=== PATIENT | female | born 2000 | race Caucasian/White ===

== ENCOUNTER 2020-08-21 10:26 | Emergency (ER) | payer OTHER, SELFPAY ==
[2020-08-21 10:35] VITALS: BP 144/73; PULSE 72; RESP 16; TEMP 36.6; O2SAT 99
[2020-08-21 10:55] VITALS: BP 116/72; PULSE 77; RESP 18; O2SAT 99
[2020-08-21 11:06] LABS: Basophils Percent Auto 0.3 % (0.2-1.2); Eosinophils Absolute Auto 0.1 K/mm3 (0-0.3); Eosinophils Percent Auto 1.6 % (0-4.4); Hematocrit 40.9 % (37.0-47.0); Hemoglobin 13.2 g/dL (12.0-15.0); Immature Granulocyte Absolute 0.01 K/mm3 (0.00-0.031); Immature Granulocyte Percent A 0.1 % (0-0.5); Lymphocytes Absolute Auto 1.97 K/mm3 (0.9-3.2); Lymphocytes Percent Auto 25.6 % (18.3-44.2); Mean Corpuscular HGB Conc 32.3 g/dl (32-36); Mean Corpuscular Hemoglobin 29.9 pg (26-34); Mean Corpuscular Volume 92.5 fl (80-100); Mean Platelet Volume 10.4 fl (7.4-10.4); Monocytes Absolute Auto 0.5 K/mm3 (0.1-0.6); Neutrophils Percent Auto 65.4 % (45.5-73.1); Platelet Count Result 243 k/mm3 (150-375); Red Blood Count 4.42 M/mm3 (4.2-5.4); Red Cell Distribution Width 12.3 % (11.5-14.5); White Blood Count 7.7 K/mm3 (4.5-10.0)
[2020-08-21 11:21] LABS: Anion Gap 6 mmol/L (8-16); Blood Urea Nitrogen 13 mg/dL (7-17); Calcium 9.1 mg/dL (8.4-10.2); Carbon Dioxide 28 mmol/L (22-30); Chloride 105 mmol/L (98-107); Estimated CRCL calculation 86 ml/min; Estimated Glomerular Filt Rate > 60; Glucose 92 mg/dL (65-105); Potassium 4.2 mmol/L (3.4-5.0); Sodium 139 mmol/L (137-145)
--- NOTE | 2020-08-21 12:13 | ED.HA ---
HPI - Headache General Chief Complaint: Headache Stated Complaint: headache Time Seen by Provider: 08/21/20 10:35 History of Present Illness HPI Narrative: Patient is a 20-year-old female who presents to the ER with concerns of abnormal thyroid function. Patient reports has been having a tension headache for the last 6 months it has been intermittent. Occasionally is in the back of her head or in her shoulder/neck. No fevers or chills or sweats/nausea/vomiting. Patient had a hair appointment and noticed a chunk of hair came out from the top of her head. No previous history of alopecia. No itching to the scalp or rash. No previous history of alopecia. No new medications. Related Data Home Medications Medication Instructions Recorded Confirmed No Home Medications 08/21/20 08/21/20 Allergies Allergy/AdvReac Type Severity Reaction Status Date / Time No Known Allergies Allergy Verified 08/21/20 10:41 Review of Systems Review of Systems: All systems reviewed & are unremarkable except as noted in HPI and below Constitutional: Constitutional: Denies chills, Denies fever(s) and Denies weakness ENT: Denies nasal congestion and Denies sore throat Cardiovascular: Cardiovascular: Denies chest pain, Denies rapid heart rate and Denies radiating jaw, neck or arm pain Respiratory: Respiratory: Denies cough, Denies dyspnea and Denies wheezing Gastrointestinal: Gastrointestinal: Denies abdominal pain, Denies nausea and Denies vomiting Integumentary/Breasts: Skin/Breast: Denies pruritus, Denies erythema and Denies rash Comments: Hair loss Neurologic: Reports headache(s), Denies focal weakness and Denies numbness Endocrine: Endocrine: Denies fatigue Comments: No cold intolerance or constipation PMFSH Past Medical History Medical History (Updated 08/21/20 @ 12:30 by Stevie Woody MD) Healthy female adult Ovarian cyst Surgical History Surgical History (Updated 08/21/20 @ 12:15 by Stevie Woody MD) H/O laparoscopy Social History Social History (Updated 08/21/20 @ 12:16 by Stevie Woody MD) Smoking status: Never smoker Exam Narrative: Exam Narrative: GENERAL: Well-appearing, well-nourished, and in no acute distress. HEAD: Normocephalic, atraumatic. Small area to the crown of the head where patient is missing some hair. Approximately 1 cm in diameter. No broken hair follicles or evidence of infection. NECK: Supple. Full range of motion is painless. No thyromegaly CHEST: Clear to auscultation. No respiratory distress. HEART: Regular rate and rhythm. Normal peripheral pulses. ABDOMEN: Soft, nontender, nondistended EXTREMITIES: Normal range of motion. No edema. NEURO: Alert and oriented x3. PSYCH: Normal mood and affect. Course Course Emergency Course: Unexplained alopecia. No ringworm or evidence of infection to the scalp. Recommend patient follow-up with PCP. Vital Signs Vital signs: Vital Signs Temperature 97.9 F 08/21/20 10:35 Pulse Rate 72 08/21/20 10:35 Respiratory Rate 16 08/21/20 10:35 Blood Pressure 144/73 H 08/21/20 10:35 Pulse Oximetry 99 08/21/20 10:35 Temperature 97.9 F 08/21/20 10:35 Pulse Rate 77 08/21/20 10:55 Respiratory Rate 18 08/21/20 10:55 Blood Pressure 116/72 08/21/20 10:55 Pulse Oximetry 99 08/21/20 10:55 MDM - Headache Lab Data Result diagrams: 08/21/20 10:55 08/21/20 10:56 Labs: Lab Results 08/21/20 08/21/20 08/21/20 Range/Units 10:55 10:56 10:56 WBC 7.7 (4.5-10.0) K/mm3 RBC 4.42 (4.2-5.4) M/mm3 Hgb 13.2 (12.0-15.0) g/dL Hct 40.9 (37.0-47.0) % MCV 92.5 (80-100) fl MCH 29.9 (26-34) pg MCHC 32.3 (32-36) g/dl RDW 12.3 (11.5-14.5) % Plt Count 243 (150-375) k/mm3 MPV 10.4 (7.4-10.4) fl Immature Gran % (Auto) 0.1 (0-0.5) % Neut % (Auto) 65.4 (45.5-73.1) % Lymph % (Auto) 25.6 (18.3-44.2) % [place] % (Auto) 7.0
[2020-08-21 12:40] VITALS: BP 132/78; PULSE 78; RESP 18; O2SAT 99
== END 2020-08-21 12:42 | disposition home or self-care (01) ==
PROVIDERS: Emergency Provider Emergency Medicine
DX: G44.209 Tension-type headache, unspecified, not intractable (principal); L65.9 Nonscarring hair loss, unspecified
CPT/HCPCS: 36415; 80048; 84443; 85025; 99283

== ENCOUNTER 2020-09-10 07:32 | Outpatient (CLI) | payer OTHER, SELFPAY ==
[2020-09-10 12:24] LABS: Cholesterol 197 mg/dL (0-200); HDL Direct 62 mg/dL; Triglycerides 104 mg/dL (<150)
[2020-09-10 12:35] LABS: LDL Cholesterol Direct 108 mg/dL
[2020-09-10 12:39] LABS: Vitamin D 25 Hydroxy 28.9 ng/mL
== END 2020-09-10 07:33 | disposition home or self-care (01) ==
LOC: ANHWCLAB 07:37
PROVIDERS: PCP Nurse Practitioner; Visit Provider Nurse Practitioner
DX: Z00.00 Encounter for general adult medical examination without abnormal findings (principal); Z13.220 Encounter for screening for lipoid disorders; E55.9 Vitamin D deficiency, unspecified
CPT/HCPCS: 36415; 80061; 82306

== ENCOUNTER 2020-11-19 10:49 | Emergency (ER) | payer OTHER, SELFPAY ==
--- NOTE | ~2020-11-19 | US_ITS ---
US pelvic complete w TV DATE: 11/19/2020 18:08 INDICATION: Right abdominal and pelvic pain TECHNIQUE: High-resolution transabdominal and transvaginal ultrasound examination Doppler evaluation COMPARISON: 11/19/2020 CT abdomen pelvis FINDINGS: The uterus measures 7.7 cm height, 3.2 cm anteroposterior and 5.1 cm transverse dimension. Central endometrial echo complex measures up to 7 mm AP dimension. Up to 4.8 cm right ovarian cyst. Interval collapse of approximately 15 cm left ovarian cyst since 11/[address] abdomen pelvis examinat ion at 1651 hours Vascular flow is confirmed to both ovaries. Mild free fluid is noted in the cul-de-sac. IMPRESSION: Ruptured left ovarian cyst since earlier CT abdomen pelvis examination today Mild free fluid in the cul-de-sac 4.8 cm right ovarian cyst Reviewed, dictated and finalized at [facility]. Reviewed, dictated and finalized at [facility] IMPRESSION: Ruptured left ovarian cyst since earlier CT abdomen pelvis examinat ion today Mild free fluid in the cul-de-sac 4.8 cm right ovarian cyst
--- NOTE | ~2020-11-19 | CT_ITS ---
EXAMINATION: CT abdomen pelvis w con DATE: 11/19/2020 17:07 INDICATION: Right lower quadrant abdominal pain with nausea, vomiting and fever. TECHNIQUE: Computed tomography (CT) of the abdomen and pelvis was performed with 100 mL Omnipaque-350 intravenous contrast. Automated exposure control and iterative reconstruction technique were employe d. The dose-length product was 324.41 mGy-cm. COMPARISON: 08/03/2018 FINDINGS: Lung bases are clear. Heart size is normal. No pericardial or pleural effusion. Liver, gallbladder, s pleen, pancreas, bilateral adrenal glands and kidneys are normal. Liquid stool throughout the colon c onsistent with diarrhea. No abnormal bowel wall thickening or obstruction. Appendix is normal. Large bilateral adnexal cysts measuring 6.6 cm in maximal diameter on the left and 5.5 cm on the right. Greg dder and anteverted uterus are unremarkable. No free intraperitoneal gas or fluid. No pathologically enlarged abdominal or pelvic lymphadenopathy. 20 degree thoracolumbar dextroscoliosis. IMPRESSION: 1. Large bilateral cysts measuring 6.6 cm on the left and 5.5 cm on the right. 2. Liquid stool throughout the colon consistent with nonspecific diarrhea. No other acute intra-abdom inal/pelvic process. Specifically normal appendix. Reviewed, dictated and finalized at [facility] IMPRESSION: 1. Large bilateral cysts measuring 6.6 cm on the left and 5.5 cm on the right. 2. Liquid stool throughout the colon consistent with nonspecific diarrhea. No o ther acute intra-abdominal/pelvic process. Specifically normal appendix.
[2020-11-19 11:42] VITALS: BP 103/49; PULSE 114; RESP 16; TEMP 37.9; O2SAT 96
[2020-11-19 12:01] LABS: Basophils Percent Auto 0.1 % (0.2-1.2); Eosinophils Absolute Auto 0.1 K/mm3 (0-0.3); Eosinophils Percent Auto 0.9 % (0-4.4); Hematocrit 43.7 % (37.0-47.0); Immature Granulocyte Absolute 0.04 K/mm3 (0.00-0.031); Immature Granulocyte Percent A 0.4 % (0-0.5); Lymphocytes Absolute Auto 0.35 K/mm3 (0.9-3.2); Lymphocytes Percent Auto 3.5 % (18.3-44.2); Mean Corpuscular Hemoglobin 29.9 pg (26-34); Mean Corpuscular Volume 93.2 fl (80-100); Mean Platelet Volume 10.3 fl (7.4-10.4); Monocytes Absolute Auto 0.7 K/mm3 (0.1-0.6); Monocytes Percent Auto 7.3 % (2.6-8.5); Neutrophils Absolute Auto 8.7 K/mm3 (1.3-6.7); Neutrophils Percent Auto 87.8 % (45.5-73.1); Platelet Count Result 193 k/mm3 (150-375); Red Blood Count 4.69 M/mm3 (4.2-5.4); Red Cell Distribution Width 12.9 % (11.5-14.5); White Blood Count 9.9 K/mm3 (4.5-10.0)
[2020-11-19 12:10] LABS: Alanine Aminotransferase 27 U/L (4-35); Albumin Level 4.6 g/dL (3.5-5.1); Alkaline Phosphatase 59 U/L (38-126); Anion Gap 9 mmol/L (8-16); Aspartate Amino Transferase 29 U/L (14-36); Bilirubin,Total 0.4 mg/dL (0.2-1.3); Blood Urea Nitrogen 14 mg/dL (7-17); Calcium 9.5 mg/dL (8.4-10.2); Carbon Dioxide 26 mmol/L (22-30); Chloride 104 mmol/L (98-107); Estimated CRCL calculation 86 ml/min; Estimated Glomerular Filt Rate > 60; Glucose 105 mg/dL (65-105); Lipase 55 U/L (23-300); Potassium 4.1 mmol/L (3.4-5.0); Sodium 139 mmol/L (137-145)
[2020-11-19 12:40] LABS: Add Urine Microscopic? YES; Appearance Urine Cloudy (Clear); Bacteria Urine Trace /hpf; Bilirubin Urine Negative (Negative); Blood Urine 1+ (Negative); Color Urine Amber (Yellow); Glucose Urine UA Negative (Negative); Ketones Urine 1+ mg/dL (Negative); Leukocyte Esterase Ur 2+ LEU/UL (Negative); Mucus Urine Heavy /lpf; Nitrate Urine Negative (Negative); Protein Urine 2+ mg/dL (Negative); Specific Grav Ur 1.026 (1.001-1.035); Squamous Epithelial Cell Urine Many /hpf (Few); Urobilinogen Urine Negative mg/dL (<2.0); WBC Urine 21-30 /hpf
[2020-11-19 13:43] VITALS: BP 97/58; PULSE 100; RESP 15; O2SAT 100
[2020-11-19 15:12] VITALS: BP 122/74; PULSE 105; RESP 16; TEMP 37.4; O2SAT 99
--- NOTE | 2020-11-19 15:18 | ED.ABDPAIN ---
HPI - Abdominal Pain General Chief Complaint: Abdominal Pain Stated Complaint: n/v, abd pain Time Seen by Provider: 11/19/20 14:52 Source: patient Mode of arrival: ambulatory Limitations: no limitations History of Present Illness HPI narrative: This is a 20-year-old female that presents to the emergency department for nausea and vomiting since this morning. Associated with right lower quadrant abdominal pain and fever. Does report some diarrhea today. Denies dysuria or hematuria. Related Data Allergies Allergy/AdvReac Type Severity Reaction Status Date / Time No Known Allergies Allergy Verified 11/19/20 15:20 Review of Systems Review of Systems: Narrative: CONSTITUTIONAL: Reports fever GASTROINTESTINAL: Reports abdominal pain, nausea, vomiting, and diarrhea. GENITOURINARY: Denies dysuria or hematuria. All systems reviewed & are unremarkable except as noted in HPI and below PMFSH Past Medical History Medical History (Updated 11/19/20 @ 19:40 by Nai Reinoso PA-C) Healthy female adult Ovarian cyst Surgical History Surgical History (Updated 08/21/20 @ 12:15 by Stevie Woody MD) H/O laparoscopy Social History Social History (Updated 08/21/20 @ 12:16 by Stevie Woody MD) Smoking status: Never smoker Exam Narrative: Exam Narrative: GENERAL: Well-appearing, well-nourished, and in no acute distress. HEAD: Normocephalic, atraumatic. EYES: EOMI. CHEST: Clear to auscultation. No respiratory distress. No wheezes rales or rhonchi HEART: Regular rate and rhythm. No murmur heard. Normal peripheral pulses. ABDOMEN: Soft, nondistended, normal active bowel sounds. Tender to palpation in the right lower quadrant, without guarding. No CVA tenderness EXTREMITIES: Normal range of motion. No edema. SKIN: Warm, dry, no rash. NEURO: No focal deficits. Alert and oriented x3. PSYCH: Normal mood and affect Course Consultations Consultation #1: Spoke with Dr. Barrera about patient and workup who will follow up in clinic. Date: 11/19/20 Time: 19:38 Vital Signs Vital signs: Vital Signs Temperature 100.2 F H 11/19/20 11:42 Pulse Rate 114 H 11/19/20 11:42 Respiratory Rate 16 11/19/20 11:42 Blood Pressure 103/49 L 11/19/20 11:42 Pulse Oximetry 96 11/19/20 11:42 Temperature 99.3 F 11/19/20 16:32 Pulse Rate 100 11/19/20 18:57 Respiratory Rate 15 11/19/20 18:57 Blood Pressure 115/66 11/19/20 18:57 Pulse Oximetry 99 11/19/20 18:57 MDM - Abdominal Pain MDM Narrative Medical decision making narrative: Patient presents to the emergency department for right lower quadrant abdominal pain, nausea and vomiting. Febrile upon arrival, patient hydrated with IV fluids and given antipyretic with improvement. CBC and metabolic panel without concerning findings. Lipase is normal. test is negative. Lactic is normal. UA with 21-30 white blood cells, but also many squamous epithelial cells. This will be sent for a culture. Patient is asymptomatic. CT scan abdomen and pelvis shows large bilateral ovarian cyst measuring 6.6 cm on the left and 5.5 cm on the right. No other acute intra-abdominal/pelvic process. Pelvic ultrasound shows normal vascular flow to the ovaries. Shows 4.8 cm right ovarian cyst. Left ovarian cyst likely has ruptured with mild free fluid in the pelvis. Spoke with Dr. Barrera about patient and workup who will follow up in clinic. Patient is stable and felt appropriate for further outpatient evaluation. She was given warnings to return to the ER Lab Data Attestation: I reviewed the patient's lab results. Result diagrams: 11/19/20 11:54 11/19/20 11:54 Labs: Lab Results 11/19/20 11/19/20 11/19/20 Range/Units 11:54 11:54 11:54 WBC 9.9 (4.5-10.0) K/mm3 RBC 4.69 (4.2-5.4) M/mm3 Hgb 14.0 (12.0-15.0) g/dL Hct 43.7 (37.0-47.0) % MCV 93.2 (80-100) fl MCH 29.9 (26-34) pg MCHC 32.0 (32-36) g/dl
[2020-11-19] MEDS: SODIUM CHLORIDE 0.9% IV 1,000 ML 999 ML IV CONT (16:04)
[2020-11-19] MEDS: ONDANSETRON INJ 4 MG/2 ML VIAL IV PUSH (16:04)
[2020-11-19 16:10] LABS: Beta HCG Quantitative < 2.39 mIU/ML
[2020-11-19 16:25] LABS: Lactic Acid Reflex 1.2 mmol/L (0.7-2.1)
[2020-11-19 16:32] VITALS: TEMP 37.4
[2020-11-19] MEDS: MORPHINE SULFATE (*CRX) 2 MG/ML INJ IV PUSH (18:07)
[2020-11-19 18:57] VITALS: BP 115/66; PULSE 100; RESP 15; O2SAT 99
[2020-11-19] MEDS: KETOROLAC 30 MG/ML VIAL (*BKC) IV PUSH (19:37)
== END 2020-11-19 20:00 | disposition home or self-care (01) ==
PROVIDERS: Physician Assistant; Emergency Provider Family Medicine; PCP Nurse Practitioner
DX: N83.202 Unspecified ovarian cyst, left side (principal); N83.201 Unspecified ovarian cyst, right side
CPT/HCPCS: 36415; 74177; 76830; 76856; 80053; 81001; 83605; 83690; 84702; 85025; 87070; 87077; 87086; 87088; 87491; 87591; 87808; 96361; 96365; 96375; 99284; J0131; J1885; J2270; J2405; J7030; Q9967

== ENCOUNTER 2020-11-26 01:32 | Day surgery (SDC) | payer OTHER, SELFPAY ==
--- NOTE | 2020-11-25 12:20 | P.PNAN_ITS ---
Anes - Initial Pre Proc Eval Procedure: Operation Date: 11/26/20 14:00 Proposed Procedures p Diagnostic Laparoscopy, Right Ovarian Cystectomy - Miko Dozier MD Date/Time: 11/25/20 12:20 Surgeon: Miko Dozier MD Pre Op Diagnosis: pelvic pain, right ovarian cyst Patient Data Age: 20 Gender: F Height: Weight: Allergies Allergy/AdvReac Type Severity Reaction Status Date / Time No Known Allergies Allergy Verified 11/25/20 14:27 Home Medications Medication Instructions Recorded Confirmed Type hydrocodone-acetaminophen 1 tablet PO Q6H PRN #14 tablet 11/19/20 11/25/20 Rx ipratropium-albuterol 2 spray INHALATION PRN PRN 11/25/20 11/25/20 History Patient hx anesthesia problems: none Family hx anesthesia problems: none [facility] Past Medical History Medical History (Updated 11/26/20 @ 07:27 by Miko Dozier MD) Healthy female adult Ovarian cyst Surgical History Surgical History (Updated 08/21/20 @ 12:15 by Stevie Woody MD) H/O laparoscopy Social History Social History (Updated 08/21/20 @ 12:16 by Stevie Woody MD) Smoking status: Never smoker Living arrangements: with family Spiritual care concerns: No Anes - Eval Final PreProcedure Day of Procedure 11/25/20 12:20 Patient weight: overweight Heart: regular rate and rhythm Lungs: clear to auscultation and normal air movement Airway: Mallampati scale class II Neurological: alert and oriented Last oral intake: >/= 8 hours ASA classification: II Emergent: no Anesthetic plan: proceed Anesthesia type and monitoring: general ETT Informed Consent: The patient's anesthetic plan and its attendant risks and benefits were discussed with the patient/family/POA. Questions were solicited and answers provided to the satisfaction of the patient/family/POA.
[2020-11-25 14:40] VITALS: BMI 26.1
[2020-11-26] VITALS (8 sets, daily range): BP systolic 103–122; BP diastolic 56–69; PULSE 57–102; RESP 14–18; TEMP 36.2–36.4; O2SAT 98–100
--- NOTE | 2020-11-26 07:16 | PM.IMHP ---
H&P: HPI History of Present Illness Date/Time: 11/26/20 07:16 20 yo G0 who presents for diagnostic laparoscopy and right ovarian cystectomy. Pt has a chronic history of ovarian cysts. Pt has had laparoscopic cystectomy in the past. Pt has had a stable right sided ovarian cyst that has been monitored for the past year. Pt stopped her OCP for 1 month and had acute onset abdominal pain. She presented to the ED where CT scan showed bilateral ovarian cysts. Follow up US showed that the left sided cyst had ruptured. Pt had outpatient follow up decision was made to observe and treat symptomatically. Pt complained of persistent nausea and vomiting attributed to abdominal discomfort. Decision was made to proceed with surgical management. Chief Complaint: abdominal pain ovarian cyst Review of Systems Cardiovascular: Cardiovascular: Denies chest pain, Denies leg edema, Denies palpitations, Denies dyspnea and Denies dyspnea on exertion Respiratory: Respiratory: Denies cough, Denies dyspnea and Denies dyspnea on exertion Gastrointestinal: Gastrointestinal: Reports abdominal pain, Denies change in stool character, Denies constipation, Denies diarrhea, Reports nausea and Reports vomiting Genitourinary: Genitourinary: Denies hematuria, Denies urinary frequency, Denies dysuria, Denies pelvic pain, Denies urinary incontinence and Denies vaginal discharge Neurologic: Reports system reviewed and no additional complaints, except as documented Psychiatric: Psychiatric: Reports no additional psychiatric complaints Endocrine: Endocrine: Denies palpitations PMFSH Past Medical History Medical History (Updated 11/26/20 @ 07:27 by Miko Dozier MD) Healthy female adult Ovarian cyst Surgical History Surgical History (Updated 08/21/20 @ 12:15 by Stevie Woody MD) H/O laparoscopy Social History Social History (Updated 08/21/20 @ 12:16 by Stevie Woody MD) Smoking status: Never smoker Living arrangements: with family Spiritual care concerns: No Meds Home Medications and Allergies Home Medications Medication Instructions Recorded Confirmed Type hydrocodone-acetaminophen 1 tablet PO Q6H PRN #14 tablet 11/19/20 11/25/20 Rx ipratropium-albuterol 2 spray INHALATION PRN PRN 11/25/20 11/25/20 History Allergies Allergy/AdvReac Type Severity Reaction Status Date / Time No Known Allergies Allergy Verified 11/25/20 14:27 Exam Const: General: no acute distress Eyes: EOM: EOMs intact bilaterally Neck: Neck: supple Thyroid: thyroid normal Chest: Breast/axilla inspection: normal inspection of the breasts Breast/axilla palpation: normal palpation of the breasts, normal palpation of the axillae and no axillary lymphadenopathy Resp: Effort & Inspection: normal respiratory effort Auscultation: clear to auscultation bilaterally Cardio: Rate: regular rate Rhythm: regular rhythm GI: Inspection: non-distended GI Palp: Yes abdominal tenderness, Yes Soft to palpation, Yes Tenderness to palpation present (GI) and No Guarding due to palpation present (GI) Auscultation: normal bowel sounds : General: No bladder normal to palpation External Female Exam: normal external appearance Speculum Exam - Vagina: normal vaginal discharge and No vaginal bleeding Speculum Exam - Cervix: nontender Bimanual exam- vagina & uterus: No bladder normal to palpation and No Cervical tenderness present OB/external & speculum: No vaginal bleeding Skin: General skin exam: normal color and no rashes or lesions noted Neuro: Cognition (Neuro): normal cognition Speech: normal speech Extrem: General: normal to inspection and no edema Psych: Mental Status: mental status grossly normal Affect: normal affect Assessment and Plan Assessment and plan (1) Ovarian cyst: Code(s): N83.209 - Unspecified ovarian cyst, unspecified side Status: Acute Assessment and Plan: pt with chronic history of ovarian cysts pt had right o
--- NOTE | 2020-11-26 07:31 | WPDHPUPDATE1 ---
History and Physical Update Update Date/Time: 11/26/20 07:31 History and Physical has been reviewed, including an updated exam of the patient. There are NO changes in the patient's condition. Risks, benefits, and alternatives have been discussed and questions answered. Patient agrees to proceed with procedure.
[2020-11-26] MEDS: LACTATED RINGERS 1,000 ML 30 ML IV CONT ×2 (12:30→14:39)
[2020-11-26] MEDS: KETOROLAC 15 MG/ML VIAL (*BKC) IV PUSH (12:37)
[2020-11-26] MEDS: ACETAMINOPHEN 500 MG TABLET 1000 MG PO (12:37)
[2020-11-26] MEDS: LIDO 1%/EPINEPHRINE 1:100,000 50 ML VIAL 30 ML INFILTRATE (14:16)
--- NOTE | 2020-11-26 14:32 | W.PM.PROC2 ---
Procedure Note - Detailed Date of Procedure 11/26/20 Pre-op Diagnosis pelvic pain, right ovarian cyst Post-op Diagnosis same Procedure Performed exploratory laparoscopy bilateral ovarian cystectomy Surgeon Miko Dozier MD Anesthesia general Indications pelvic pain ovarian cyst Findings enlarged ovaries bilatearlly with simple appearing cysts Description of Procedure The patient was taken to the operating room where general endotracheal anesthesia was undertaken and found to be adequate. She was then prepped and draped in the dorsal lithotomy position and placed in adjustable stirrups. A pre-operative team brief and a time out were completed. A catheter was placed to drain the bladder. Retractors were placed placed in the vagina and the cervix was identified. An acorn uterine manipulator was placed. Attention was then turned to the abdomen which was anesthetized umbilically with injected anesthestic. A 5 mm skin incision was made in the umbilicus. A 5 mm optical trocar was then placed with direct camera visualization of the abdominal layers during placement. The trocar stylet was removed and the camera was used to verify intra-abdominal placement. CO2 insufflation was then connected and resumed. The pelvis was inspected. A suprapubic 5 mm port was placed in the standard fashion after using local anesthetic. On pelvic inspection, the ovaries appeared enlarged bilaterally. The right ovary was enlarged with a visible simple appearing cyst. The right ovarian cyst was then incised with monopolar scissors. Upon incision, clear fluid was drained from the ovary. The incision was extended to the full length of cyst. Suction irrigation was then placed through the ovarian incision. The remaining fluid was drained from the cyst. The cyst was then irrigated. Similar procedure was performed on the left ovary. A smaller cyst was identified. A small amount of clear fluid was drained from the cyst. The surgical field was thoroughly irrigated using normal saline. All surgical beds were noted to be hemostatic. The abdomen was relieved of all CO2 gas. All remaining trocars were removed from the abdomen. Sponge, lap and needle counts were correct. All skin incisions were closed with 4-0 Vicryl suture subcuticularly. The uterine manipulator was removed from the uterus. Hemostasis of the cervix was noted. The patient was taken out of dorsal lithotomy position. Anesthesia was reversed. The patient was taken to the PACU. Estimated Blood Loss 25 Urine Output 150 Drains No Packing No Pathology none sent Complications No immediate complications Condition stable Disposition PACU
[2020-11-26] MEDS: oxyCODONE HCL (*CRX) 5 MG TAB IR PO (16:22)
== END 2020-11-26 16:45 | disposition home or self-care (01) ==
PROVIDERS: PCP Nurse Practitioner; Visit Provider Student in an Organized Health Care Education/Training Program
PROC: (CPT 49320; principal; 2020-11-26 14:00)
DX: R10.2 Pelvic and perineal pain (principal); N83.202 Unspecified ovarian cyst, left side; N83.201 Unspecified ovarian cyst, right side
CPT/HCPCS: 58662; 36415; 86850; 86900; 86901; A9270; J1100; J1885; J2250; J2405; J2704; J2710; J3010; J7030; J7120